=== PATIENT | male | born 1960 | race Caucasian/White ===

== ENCOUNTER 2021-11-26 17:31 | Emergency (ER) | payer OTHER ==
[~2021-11-26] VITALS: Ht 132.1 cm; Wt 113.4 kg
[2021-11-26 18:39] LABS: BASOPHILS % (AUTO) 0.5 % (0.0-5.0); EOSINOPHILS % (AUTO) 3.3 % (0.0-8.0); HEMATOCRIT 38.7 % (42-54); LYMPHOCYTES % (AUTO) 29.4 % (21.0-51.0); MEAN CORPUSCULAR HEMOGLOBIN 30.9 pg (27.0-33.0); MEAN CORPUSCULAR HGB CONC 33.3 g/dL (32.0-36.0); MEAN CORPUSCULAR VOLUME 92.8 fL (79-99); NEUTROPHILS % (AUTO) 59.5 % (40.0-77.0); PLATELET COUNT (AUTO) 173 K/uL (130-400); RED BLOOD CELL COUNT(AUTO) 4.17 MIL/uL (4.50-6.20); RED CELL DISTRIBUTION WIDTH 12.7 % (11.0-15.5); WHITE BLOOD COUNT (AUTO) 5.8 K/uL (4.8-10.8)
[2021-11-26 18:40] LABS: APPEARANCE,URINE CLEAR (CLEAR); BILIRUBIN,URINE NEGATIVE (NEGATIVE); COLOR,URINE YELLOW (YELLOW); GLUCOSE, URINE (UA) NEGATIVE (NEGATIVE); KETONES,URINE NEGATIVE (NEGATIVE); LEUKOCYTE ESTERASE ,URINE NEGATIVE (NEGATIVE); NITRATE,URINE NEGATIVE (NEGATIVE); OCCULT BLOOD,URINE TRACE-INTACT (NEGATIVE); PH,URINE 6.5 (5.0-8.0); PROTEIN,URINE NEGATIVE (NEGATIVE); UROBILINOGEN,URINE 0.2 mg/dL (0.2-1.0)
[2021-11-26 18:51] LABS: BACTERIA,URINE Rare /HPF (None Seen); RBC,URINE 0-1 /HPF (0-1); SQUAMOUS EPITHELIAL CELL,UR Rare /HPF (0-2); WBC,URINE 0-1 /HPF (0-1)
[2021-11-26] MEDS ORDERED: ONDANSETRON 4MG INJ ONE (18:58)
[2021-11-26] MEDS ORDERED: FAMOTIDINE 20MG VIAL IV ONE ×2 (18:58→19:00)
[2021-11-26] MEDS ORDERED: ONDANSETRON 4MG INJ IVP ONE (19:00)
[2021-11-26] MEDS ORDERED: 0.9%NACL 1000ML 1,000 ML IV ONE (19:00)
[2021-11-26 19:03] LABS: ALBUMIN 3.9 g/dL (3.5-5.0); BILIRUBIN,TOTAL 0.4 mg/dL (0.2-1.0); CREATININE 0.7 mg/dL (0.5-1.5); TOTAL PROTEIN, SERUM 7.4 g/dL (6.0-8.3)
[2021-11-26] MEDS ORDERED: METOCLOPRAMIDE 10 MG/2 ML VIAL IVP ONE (19:30)
[2021-11-26] MEDS ORDERED: METOCLOPRAMIDE 10 MG/2 ML VIAL ONE (19:52)
[2021-11-26] MEDS ORDERED: BENZ-39 PO (20:34)
[2021-11-26] MEDS ORDERED: DICY20TA2 PO (20:34)
[2021-11-26] MEDS ORDERED: LACT1CAP81 PO (20:34)
[2021-11-26] MEDS ORDERED: ONDA4TAB10 PO (20:34)
[2021-11-26 20:38] VITALS: BP 133/81
== END 2021-11-26 20:42 | disposition home or self-care (01) ==
LOC: EDH 17:31
DX: A08.4 Viral intestinal infection, unspecified (principal); Z20.822 Contact with and (suspected) exposure to COVID-19; F31.9 Bipolar disorder, unspecified; G89.29 Other chronic pain; M54.50 Low back pain, unspecified; Z96.653 Presence of artificial knee joint, bilateral
CPT/HCPCS: 36415; 71045; 80053; 81001; 83605; 84484; 85025; 87635; 87804 ×2; 93005; 96374; 96375; 99285; C9803; J2405; J2765; J3490